=== PATIENT | male | born 1985 | race Caucasian/White ===

== ENCOUNTER 2017-12-23 22:57 | Emergency (ER) | payer BC ==
[~2017-12-23] VITALS: Ht 170.2 cm; Wt 84.4 kg
[2017-12-23] MEDS ORDERED: ACETAMINOPHEN 325 MG TAB PO ONE (23:15)
--- NOTE | 2017-12-23 23:46 | Diagnostic Imaging Report ---
EXAMINATION: Head CT without contrast. HISTORY:Headache. COMPARISON:None. TECHNIQUE: Multidetector axial images were obtained from the foramen magnum to the vertex without contrast. The images were reconstructed using brain and bone algorithms. Thin section brain images were reformatted into coronal and sagittal planes. Dose modulation, iterative reconstruction, and/or weight based adjustment of the mA/kV was utilized to reduce the radiation dose to as low as reasonably achievable. Intravenous contrast: None IMAGE QUALITY: Acceptable. FINDINGS: Skull/Scalp: No lytic or blastic. lesions. No surgical changes. Parenchyma: No abnormal density. No acute hemorrhage, mass or acute major vascular territorial infarct. Arteries: No density suggestive of thrombosis. Dural sinuses: No abnormal density suggestive of thrombosis. Ventricles: No hydrocephalus or displacement. Extra-axial spaces: No abnormal density. Brain volume: Normal for age. Craniocervical junction: No mass, Chiari malformation, or basilar invagination. Sella: No mass. Paranasal/mastoid sinuses: Visualized portion of right maxillary sinus is opacified. Moderate mucosal thickening in bilateral ethmoid and left frontal sinus. Small polyp in left sphenoid sinus. IMPRESSION: No intracranial abnormality. Moderate mucosal inflammatory changes in the paranasal sinuses as detailed above. Signed by: Dr. Celeste Laughlin M.D. on 12/23/2017 11:43 PM
[2017-12-24 00:04] VITALS: BP 120/80
== END 2017-12-24 00:05 | disposition home or self-care (01) ==
LOC: FSED 22:57
DX: G44.329 Chronic post-traumatic headache, not intractable (principal); R11.2 Nausea with vomiting, unspecified
CPT/HCPCS: 70450; 99283

== ENCOUNTER 2018-05-25 16:16 | Emergency (ER) | payer BC ==
[~2018-05-25] VITALS: Ht 170.2 cm; Wt 84.4 kg
--- OUTSIDE RECORDS SUMMARY | 2018-05-25 18:08 | XMS REPORT ---
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 Allergies, Adverse Reactions, Alerts This patient has no known allergies or adverse reactions. Medications This patient has no known medications. Results Test Description Test Time Test Comments Text Results Atomic Results Result Comments CT BRAIN WO-[facility] 2017-12-23 23:32:00 [place] [address] Patient Name: SUE XIE MR #: [id number] : 1985 Age/Sex: 32/M Req #: [id number] [facility] Physician: Ordered by: TATO MORSE MD Report #: [id number] Location: [facility] Room/Bed: Procedure: [id number] [facility]OP[facility] Exam Date: 12/23/17 Exam Time: 2310 REPORT STATUS: Signed EXAMINATION: Head CT without contrast. HISTORY:Headache. COMPARISON:None. TECHNIQUE: Multidetector axial images were obtained from the foramen magnum to the vertex without contrast. The images were reconstructed using brain and bone algorithms. Thin section brain images were reformatted into coronal and sagittal planes. Dose modulation, iterative reconstruction, and/or weight based adjustment of the mA/kV was utilized to reduce the radiation dose to as low as reasonably achievable. Intravenous contrast: None IMAGE QUALITY: Acceptable. FINDINGS: Skull/Scalp: No lytic or blastic. lesions. No surgical changes. Parenchyma: No abnormal density. No acute hemorrhage, mass or acute major vascular territorial infarct. Arteries: No density suggestive of thrombosis. Dural sinuses: No abnormal density suggestive of thrombosis. Ventricles: No hydrocephalus or displacement. Extra- axial spaces: No abnormal density. Brain volume: Normal for age. Craniocervical junction: No mass, Chiari malformation, or basilar invagination. Sella: No mass. Paranasal/mastoid sinuses: Visualized portion of right maxillary sinus is opacified. Moderate mucosal thickening in bilateral ethmoid and left frontal sinus. Small polyp in left sphenoid sinus. IMPRESSION: No intracranial abnormality. Moderate mucosal inflammatory changes in the paranasal sinuses as detailed above. Signed by: Dr. Celeste Rodney M.D. on 12/23/2017 11:43 PM Dictated By: CELESTE RODNEY MD [id number] Transcribed By: GRACE on 12/23/17 [id number] COPY TO: TATO MORSE MD
== END 2018-05-25 16:50 | disposition home or self-care (01) ==
LOC: FSED 16:16
DX: M54.2 Cervicalgia (principal); M25.512 Pain in left shoulder; S16.1XXA Strain of muscle, fascia and tendon at neck level, initial encounter; V43.52XA Car driver injured in collision with other type car in traffic accident, initial encounter; Y92.488 Other paved roadways as the place of occurrence of the external cause
CPT/HCPCS: 99283